=== PATIENT | male | born 1995 | race Caucasian/White ===

== ENCOUNTER 2017-07-19 03:57 | Emergency (ER) | payer BC, OTHER ==
[~2017-07-19] VITALS: Ht 172.7 cm; Wt 108.6 kg
[2017-07-19 03:59] VITALS: TEMP 36.8; Ht 172.7 cm; Wt 108.6 kg
[2017-07-19] MEDS ORDERED: KETOROLAC TROMETHAMINE 30 MG/ML VIAL IV STA (04:21)
[2017-07-19] MEDS ORDERED: DiphenhydrAMINE HCL 50 MG/ML VIAL IV STA (04:21)
[2017-07-19] MEDS ORDERED: PROCHLORPERAZINE 5 MG/ML 2 ML VIAL IV STA (04:21)
[2017-07-19] MEDS ORDERED: SODIUM CHLORIDE 0.9% 1000ML 1,000 ML IV ONE (04:30)
[2017-07-19] MEDS ORDERED: DEXAMETHASONE SOD INJ 10 MG/ML VIAL IV ONE (04:30)
[2017-07-19 05:05] LABS: BASO % 0.3 %; BASO ABS # 0.03 K/uL (0-0.2); COMPLETE YES; EOS % 0.8 %; HEMATOCRIT 42.3 % (42-52); IG% 0.1 %; LYMPH % 27.7 %; LYMPH ABS # 2.48 K/uL (1.2-3.4); MEAN CELL VOLUME 77.6 fL (80-100); MEAN CORPUSCULAR HEMOGLOBIN 25.9 pg (25-34); MEAN CORPUSCULAR HGB CONC 33.3 g/dl (32-36); MONO % 6.3 %; NEUT % 64.8 %; PLATELET COUNT 219 K/uL (130-400); RED BLOOD COUNT 5.45 M/uL (4.7-6.1); WHITE BLOOD COUNT 8.94 K/uL (4.8-10.8)
[2017-07-19 05:28] LABS: BUN/CREATININE RATIO 13.1 (10-20); CALCIUM 8.9 mg/dl (8.5-10.1); CREATININE 1.2 mg/dl (0.60-1.40); POTASSIUM 3.7 mmol/L (3.5-5.1)
[2017-07-19] MEDS ORDERED: NURSING VERBAL MED ORDER ONE (05:30)
[2017-07-19 05:31] LABS: ALB/GLOB RATIO 1.2 (0.9-2)
[2017-07-19 06:26] VITALS: BP 117/56; PULSE 82; O2SAT 96
--- NOTE | 2017-07-19 07:28 | DIAGNOSTIC IMAGING REPORT ---
CT OF THE HEAD WITHOUT CONTRAST CLINICAL HISTORY: Headache. COMPARISON STUDY: No previous studies for comparison. CT DOSE: 537.48 mGy.cm TECHNIQUE: Helical axial images of the head were obtained without IV contrast. Automated exposure control was utilized for the study. A dose lowering technique was utilized adhering to the principles of ALARA. FINDINGS: No acute intracranial hemorrhage, midline shift or mass effect is present. Ventricular system is normal. Basilar cisterns are patent. There are no extra-axial collections. Staley-white differentiation is maintained. There are no findings to suggest acute dural sinus thrombosis or acute territorial oral infarct. There are no significant calvarial abnormalities. Visualized portions of the sinuses and mastoid air cells are clear. IMPRESSION: No acute intracranial findings. Electronically signed by: Aaron Martinez M.D. 07/19/2017 7:27 AM Dictated Date/Time: 07/19/2017 7:24 AM
--- NOTE | 2017-07-20 05:12 | EMERGENCY ROOM VISIT NOTE ---
History First contact with patient: 04:09 Chief Complaint: HEADACHE Stated Complaint: BAD HEADACHE, EYE PAIN History of Present Illness The patient is a 21 year old male who presents to the Emergency Room with complaints of left-sided headache and left-sided eye pain. The patient has had headaches in the past and this feels similar in location but worse in intensity than normal. This is not the worst headache of his life. He rates his discomfort an 8/10. He is nauseated without vomiting. He does not report recent injury or trauma. He is not on blood thinners. He does not have other significant past medical disease and has not taken anything for the discomfort. Review of Systems More than 10 systems were reviewed and otherwise negative with the exception of history of present illness. Past Medical/Surgical History No chronic medical disease Family History No pertinent family history Social History Smoking Status: Never Smoker Occupation Status: [employer] student Current/Historical Medications No Active Prescriptions or Reported Meds Physical Exam Vital Signs Date Time Temp Pulse Resp B/P (MAP) Pulse Ox O2 Delivery O2 Flow Rate FiO2 07/19/17 06:26 82 16 117/56 96 07/19/17 05:50 82 16 117/56 96 Room Air 07/19/17 03:59 36.8 74 15 132/81 96 Room Air Physical Exam VITALS: Vitals are noted on the nurse's note and reviewed by myself. Vital signs stable. GENERAL: Well-developed, well-nourished, male, who is in no acute distress and resting comfortably. Patient is cooperative with the examination. HEAD: Normocephalic atraumatic. EARS: External ear normal. External auditory canals clear, tympanic membranes pearly staley without erythema or effusion bilaterally. EYES: Pupils equal round and reactive to light and accommodation. Conjunctivae without injection, sclerae without icterus. Extraocular movements intact. NOSE: Patent, turbinates without inflammation or discharge. MOUTH: Mucous membranes moist. Tonsils are not enlarged. Pharynx without erythema, blood, or exudate. Uvula midline. Airway patent. NECK: Supple without nuchal rigidity. No lymphadenopathy. No thyromegaly. Cervical spine is nontender. No meningismus HEART: Regular rate and rhythm without murmurs gallops or rubs. LUNGS: Clear to auscultation bilaterally without wheezes, rales or rhonchi. No retractions or accessory muscle use. NEURO: Patient was alert and oriented to person place and time. CN II through XII grossly intact. Medical Decision & Procedures ER Provider Diagnostic Interpretation: CT OF THE HEAD WITHOUT CONTRAST CLINICAL HISTORY: Headache. COMPARISON STUDY: No previous studies for comparison. CT DOSE: 537.48 mGy.cm TECHNIQUE: Helical axial images of the head were obtained without IV contrast. Automated exposure control was utilized for the study. A dose lowering technique was utilized adhering to the principles of ALARA. FINDINGS: No acute intracranial hemorrhage, midline shift or mass effect is present. Ventricular system is normal. Basilar cisterns are patent. There are no extra-axial collections. Staley-white differentiation is maintained. There are no findings to suggest acute dural sinus thrombosis or acute territorial oral infarct. There are no significant calvarial abnormalities. Visualized portions of the sinuses and mastoid air cells are clear. IMPRESSION: No acute intracranial findings. Laboratory Results 07/19/17 04:50 Red Blood Count 5.45, Mean Corpuscular Volume 77.6, Mean Corpuscular Hemoglobin 25.9, Mean Corpuscular Hemoglobin Concent 33.3, Mean Platelet Volume 10.0, Neutrophils (%) (Auto) 64.8, Lymphocytes (%) (Auto) 27.7, Monocytes (%) (Auto) 6.3, Eosinophils (%) (Auto) 0.8, Basophils (%) (Auto) 0.3, Neutrophils # (Auto) 5.79, Lymphocytes # (Auto) 2.48, Monocytes # (Auto) 0.56, Eosinophils # (Auto) 0.07, Basophils # (Auto) 0.03 07/19/17 04:50 Test 07/19/17 04:50 White Blood Count 8.94 K/uL (4.8-10.8) Red Blood Count 5.45 M/uL (4.7-6.1) Hemoglobin 14.1 g/dL (14.0-18.0) Hematocrit 42.3 % (42-52) Mean Corpuscular Volume 77.6 fL (80-100) Mean Corpuscular Hemoglobin 25.9 pg (25-34) Mean Corpuscular Hemoglobin Concent 33.3 g/dl (32-36) Platelet Count 219 K/uL (130-400) Mean Platelet Volume 10.0 fL (7.4-10.4) Neutrophils (%) (Auto) 64.8 % Lymphocytes (%) (Auto) 27.7 % Monocytes (%) (Auto) 6.3 % Eosinophils (%) (Auto) 0.8 % Basophils (%) (Auto) 0.3 % Neutrophils # (Auto) 5.79 K/uL (1.4-6.5) Lymphocytes # (Auto) 2.48 K/uL (1.2-3.4) Monocytes # (Auto) 0.56 K/uL (0.11-0.59) Eosinophils # (Auto) 0.07 K/uL (0-0.5) Basophils # (Auto) 0.03 K/uL (0-0.2) RDW Standard Deviation 35.3 fL (36.4-46.3) RDW Coefficient of Variation 12.6 % (11.5-14.5) Immature Granulocyte % (Auto) 0.1 % Immature Granulocyte # (Auto) 0.01 K/uL (0.00-0.02) Anion Gap 7.0 mmol/L (3-11) Est Creatinine Clear Calc Drug Dose 118.3 ml/min Estimated GFR () 101.0 Estimated GFR (Non- 87.1 BUN/Creatinine Ratio 13.1 (10-20) Calcium Level 8.9 mg/dl (8.5-10.1) Total Bilirubin 0.4 mg/dl (0.2-1) Aspartate Amino Transf (AST/SGOT) 23 U/L (15-37) Alanine Aminotransferase (ALT/SGPT) 34 U/L (12-78) Alkaline Phosphatase 77 U/L (45-117) Total Protein 7.5 gm/dl (6.4-8.2) Albumin 4.1 gm/dl (3.4-5.0) Globulin 3.4 gm/dl (2.5-4.0) Albumin/Globulin Ratio 1.2 (0.9-2) Medications Administered Medications (Trade) Dose Ordered Sig/Macy Route Start Time Stop Time Status Last Admin Dose Admin Diphenhydramine HCl (Benadryl Inj) 25 mg NOW STAT IV 07/19/17 04:21 07/19/17 04:23 DC 07/19/17 04:59 25 MG Prochlorperazine Edisylate (Compazine Inj) 10 mg NOW STAT IV 07/19/17 04:21 07/19/17 04:23 DC 07/19/17 04:59 10 MG Dexamethasone Sodium Phosphate (Decadron Inj) 10 mg NOW ONCE IV 07/19/17 04:30 07/19/17 04:31 DC 07/19/17 04:59 10 MG Sodium Chloride 1,000 ml @ 999 mls/hr Q1H1M ONCE IV 07/19/17 04:30 07/19/17 05:30 DC 07/19/17 04:59 999 MLS/HR Ketorolac Tromethamine (Toradol Inj) 30 mg NOW STAT IV 07/19/17 04:21 07/19/17 04:23 DC 07/19/17 04:58 30 MG Miscellaneous Information (Nursing Verbal Med Order) 1 ea ONE ONCE N/A 07/19/17 05:30 07/19/17 05:32 DC 07/19/17 05:36 1 EA ED Course Physical exam and history were performed. Nursing notes, EMR, and Medication List were personally reviewed. Patient appears to have headache symptoms for the past few hours. The patient is not having worsening of his life. He has not had previous imaging studies in the past and does not regularly seen at this facility for his headaches. IV access was established and labs were obtained. Patient was hydrated medicated as above. CT scan was performed. The patient does not have a significantly elevated white blood cell count. He does not have significant anemia, bandemia, or gross electrolyte imbalance. CT scan does not show evidence of acute intracranial abnormality. On reevaluation the patient felt significantly better and was sleeping very comfortably in his emergency department bed. His symptoms had almost completely resolved after the above interventions. The patient does feel well for discharge home, and this seems reasonable. He certainly does not exhibit signs of meningitis or encephalitis. I do not suspect a bleed and will have him follow-up with [facility] in the next few days for a recheck. He was otherwise invited back to the ER with any new, worsening, or concerning symptoms. The chart was completed utilizing [employer] Voice Recognition Software. Grammatical errors, random word insertions, pronoun errors, and incomplete sentences are an occasional consequence of this system due to software limitations, ambient noise, and hardware issues. Any formal questions or concerns about the content, text, or information contained within the body of this dictation should be directly addressed to the provider for clarification. . Medical Decision The differential diagnosis includes, but is not limited to: acute intracranial bleed, meningitis, encephalitis, mass or mass effect, sinusitis, infection, tumor, headache, temporal arteritis and carbon monoxide exposure, and migraine. Medication Reconcilliation Current Medication List: was personally reviewed by me Blood Pressure Screening Patient's blood pressure: Normal blood pressure Impression Primary Impression: Headache Departure Information Dispostion Home / Self-Care Condition GOOD Prescriptions No Active Prescriptions or Reported Meds Referrals Truman Lockett M.D. (PCP) Forms HOME CARE DOCUMENTATION FORM, School Instructions, Additional Instructions: Patient was seen and evaluated today in the emergency department medica care. Return to school/work on 07/20/2017. Please excuse. IMPORTANT VISIT INFORMATION Patient Instructions My [facility] Additional Instructions You were seen and evaluated today on an emergency basis only. This is not a substitute for, or an effort to provide, complete comprehensive medical care. It is not possible to recognize and treat all injuries or illnesses in a single emergency department visit. For this reason it is recommended that you followup with your primary care physician or neurologist this week for ongoing care and evaluation. DO NOT drive, drink alcohol, operate machinery, or perform dangerous activities today. You were given medications in the ER that can affect your ability to safely function or operate a vehicle. Rest today in a quiet, peaceful, dark environment and get a full 8-10 hrs of sleep tonight. Avoid loud noises, smoke/smoking, alcohol, bright lights, stress, or physical exertion today to minimize the chance the headache may return. Continue current medications. Ibuprofen(Motrin, Advil) may be used for fever or pain. Use 600mg every six hours as needed. Take with food. Avoid using more than 2400mg in a 24 hour period. Do not use 2400mg per day for more than three consecutive days without physician direction. Prolonged inappropriate use can lead to stomach upset or ulcers. (AND/OR) Acetaminophen(Tylenol) may be used for fever or pain. Use 1000mg every six hours as needed. Avoid using more than 4000mg in a 24 hour period. Return to the ER for passing out, worsening headache, vision problems, neck stiffness/pain, fevers, vomiting, worsening of your condition, or as needed. School Instructions Additional School Instructions: Patient was seen and evaluated today in the emergency department medical care. Return to school/work on 07/20/2017. Please excuse.
== END 2017-07-19 06:28 | disposition home or self-care (01) ==
LOC: C.EDB 03:59 → C.EDA 06:28
DX: R51 Headache (principal)